=== PATIENT | female | born 1995 ===

== ENCOUNTER 2019-07-25 13:28 | Emergency (ER) | payer SELFPAY ==
[2019-07-25 14:21] LABS: Bilirubin Negative (Negative); Blood, Urine Negative (Negative); Clarity Clear (Clear); Glucose, Urine (Dipstick) Normal (Negative); Leukocyte Negative Leu/uL (Negative); Nitrite Negative (Negative); Protein, Urine (Dipstick) Negative (Neg-Trace); Urobilinogen Normal mg/dL (Less than 2)
[2019-07-25 14:22] LABS: Pregnancy Test - Urine (BHCG) Negative (Negative); Pregu Control Background? CLEAR/WHITE (CLR/WHITE); Pregu Control Bar Appear? YES (CONTROL BAR)
[2019-07-25] MEDS ORDERED: Ketorolac Tromethamine 30 MG/ML VIAL ONE (14:35)
[2019-07-25] MEDS ORDERED: Ondansetron PF 4 MG/2 ML Vial ONE (14:35)
[2019-07-25 14:41] LABS: #Basophils 0.1 thou/uL (0.0-0.2); #Eosinphils 0.1 thou/uL (0.0-0.7); #Lymphocytes 2.6 thou/uL (1.20-3.40); #Monocytes 0.8 thou/uL (0.11-0.59); #Neutrophils 5.9 thou/uL (1.40-6.50); %Basophils 0.8 % (0.0-1.0); %Eosinophils 1.6 % (0.0-10.0); %Lymphocytes 27.2 % (21.0-51.0); %Monocytes 8.9 % (0.0-10.0); %Neutrophils 61.6 % (42.0-75.0); Hemoglobin 15.6 g/dL (12.0-16.0); Mean Corpuscular Hemoglobin 31.2 pg (27.0-31.0); Mean Platelet Volume 7.8 fL (7.4-10.4); Platelet Count 271 thou/uL (130-400); RBC Distribution Width 12.2 % (11.5-14.5); White Blood Cell (WBC) Count 9.5 thou/uL (4.8-10.8)
[2019-07-25 15:01] LABS: ALT (SGPT) 93 U/L (8-55); AST (SGOT) 37 U/L (5-34); Albumin 4.7 g/dL (3.5-5.0); Alkaline Phosphatase 74 U/L (40-110); Anion Gap 13 mmol/L (10-20); BUN (Urea Nitrogen) 10 mg/dL (7.0-18.7); Bilirubin, Total 0.5 mg/dL (0.2-1.2); Calc. Creatinine Clearance 0 mL/min (70-130); Calcium 10.2 mg/dL (7.8-10.44); Carbon Dioxide 27 mmol/L (22-29); Chloride 102 mmol/L (98-107); Estimated GFR-MDRD Greater than 90; Globulin 2.7 g/dL (2.4-3.5); Glucose 84 mg/dL (70-105); Lipase 21 U/L (8-78); Potassium 3.9 mmol/L (3.5-5.1); Protein, Total 7.4 g/dL (6.0-8.3); Sodium 138 mmol/L (136-145)
--- NOTE | 2019-07-25 15:25 | CT ---
CT ABDOMEN NONCONTRAST CT PELVIS NONCONTRAST: (Urolithiasis protocol) DATE: 07/25/2019 HISTORY: 24-year-old female with left flank pain and nausea. TECHNIQUE: IV injection of iodinated contrast media: None Oral contrast media: None FINDINGS: Other than for urolithiasis, the lack of IV and oral contrast limits the evaluation. Liver: No contour abnormalities. Diffusely low attenuation represents fatty liver. Spleen: No splenomegaly. Pancreas: No contour abnormalities. Adrenals: No mass. Kidneys: No nephrolithiasis or overt hydronephrosis. Ureters: No calculi. Bladder: No calculi. Abdominal aorta: No aneurysm. Small bowel: No dilation. Colon: No adjacent fat stranding. Appendix: No dilation or adjacent fat stranding. Free air: None Free fluid: None Ovaries: Right measures 3.5 x 2.5 x 3.5 cm. Left measures 3.5 x 2.5 x 4 cm. No large ovarian cysts. Lumbar spine: Normal. IMPRESSION: 1. No acute findings. 2. No urolithiasis or obstructive uropathy. 3. Symmetrically enlarged bilateral ovaries. This could represent polycystic ovarian disease. 4. Hepatic steatosis.
--- NOTE | 2019-07-25 16:15 | ULT ---
ULTRASOUND PELVIC ULTRASOUND TRANSVAGINAL DOPPLER DUPLEX: DATE: 07/25/2019 HISTORY: 24-year-old female with pelvic pain. History of polycystic ovary disease. TECHNIQUE: Transabdominal transducer and endovaginal transducer used to visualize intrapelvic contents with burnham scale, color-flow, and spectral analysis. FINDINGS: Limited visualization because of body habitus. Uterus: 7 x 2.5 x 4.5 cm. Endometrial stripe: 0.4 cm (4 mm). No moderate sized or large uterine leiomyoma visualized. Right ovary: Measured as 4.3 x 2.8 x 3.2 cm. Left ovary: Measured as 3.7 x 2.4 x 2.5 cm. Large number of peripherally located prominent follicles in "string of pearls" configuration. No ovarian cyst larger than 2 cm. Blood flow demonstrated in both ovaries by Doppler. No free fluid in cul-de-sac. IMPRESSION: 1) no acute findings. 2) morphology of bilateral ovaries consistent with polycystic ovary disease.
== END 2019-07-25 16:53 | disposition home or self-care (01) ==
LOC: ERS 13:28
DX: E28.2 Polycystic ovarian syndrome (principal)
CPT/HCPCS: 74176; 76856; 80053; 81003; 81025; 83690; 85025; 93005; 96374; 96375; J1885; J2405